=== PATIENT | female | born 1995 | race Caucasian/White ===

== ENCOUNTER 2017-06-18 22:43 | Emergency (ER) | payer MEDICAID ==
[~2017-06-18] VITALS: Ht 160 cm; Wt 46.3 kg
[2017-06-18 23:19] VITALS: BP 127/85
[2017-06-19] MEDS ORDERED: IBUPROFEN 400 MG TABLET ONE (00:12)
--- NOTE | 2017-06-19 00:17 | NUR ---
Patient discharged to home in stable condition. Written and verbal after care instructions along with RX given. Patient verbalizes understanding of instruction. VSS upon discharge.
[2017-06-19] MEDS ORDERED: IBUPROFEN 400 MG TABLET PO ONE (00:30)
== END 2017-06-19 00:26 | disposition home or self-care (01) ==
LOC: ER 22:43
DX: H66.91 Otitis media, unspecified, right ear (principal); J04.0 Acute laryngitis; H72.91 Unspecified perforation of tympanic membrane, right ear; J06.9 Acute upper respiratory infection, unspecified
CPT/HCPCS: A4606; Z7610

== ENCOUNTER 2018-10-17 19:58 | Emergency (ER) | payer MEDICAID ==
[~2018-10-17] VITALS: Ht 160 cm; Wt 51.3 kg
[2018-10-17 20:06] VITALS: BP 126/70
--- NOTE | 2018-10-17 20:14 | NUR ---
BIBSELF C/O MULTIPLE INSECT BITES BILATERAL UPPER EXTERMITIES , + SWELLING AND TENDERNESS AND REDNESS. NKA. USED [employer] W/ NO HELP.
[2018-10-17] MEDS ORDERED: diphenhydrAMINE HCL 25 MG CAPSULE PO ONE (20:30)
[2018-10-17] MEDS ORDERED: FAMOTIDINE (20 MG) 20 MG TABLET PO ONE (20:30)
[2018-10-17] MEDS ORDERED: predniSONE 10 MG TABLET PO ONE (20:30)
[2018-10-17] MEDS ORDERED: diphenhydrAMINE HCL 25 MG CAPSULE ONE (20:34)
[2018-10-17] MEDS ORDERED: predniSONE 20 MG TABLET ONE (20:35)
[2018-10-17] MEDS ORDERED: FAMOTIDINE (20 MG) 20 MG TABLET ONE (20:35)
--- NOTE | 2018-10-17 20:52 | NUR ---
Patient discharged to home in stable condition. Rx and Written and verbal after care instructions given. Patient verbalizes understanding of instruction.
== END 2018-10-17 20:54 | disposition home or self-care (01) ==
LOC: ER 20:04
DX: S40.862A Insect bite (nonvenomous) of left upper arm, initial encounter (principal); S40.861A Insect bite (nonvenomous) of right upper arm, initial encounter; L08.9 Local infection of the skin and subcutaneous tissue, unspecified; W57.XXXA Bitten or stung by nonvenomous insect and other nonvenomous arthropods, initial encounter; Y93.89 Activity, other specified; Y92.89 Other specified places as the place of occurrence of the external cause; Y99.8 Other external cause status
CPT/HCPCS: 99284; J7512; Q0163

== ENCOUNTER 2020-09-15 01:40 | Emergency (ER) | payer OTHER ==
[~2020-09-15] VITALS: Ht 160 cm; Wt 51.7 kg
[2020-09-15 01:44] VITALS: BP 136/86
[2020-09-15] MEDS ORDERED: METH4TAB3 PO (01:56)
[2020-09-15] MEDS ORDERED: HYDR28.32 TP (01:56)
[2020-09-15] MEDS ORDERED: DEXAMETHASONE SOD PHOSPHATE 10 MG/ML VIAL IM ONE (02:00)
[2020-09-15] MEDS ORDERED: DIPHENHYDRAMINE HCL 12.5 MG/5 ML UDC PO ONE (02:00)
[2020-09-15] MEDS ORDERED: diphenhydrAMINE HCL 25 MG CAPSULE ONE (02:06)
[2020-09-15] MEDS ORDERED: DEXAMETHASONE SOD PHOSPHATE 10 MG/ML VIAL ONE (02:06)
== END 2020-09-15 02:40 | disposition home or self-care (01) ==
LOC: ER 01:40
DX: R21 Rash and other nonspecific skin eruption (principal); Z79.899 Other long term (current) drug therapy
CPT/HCPCS: 96372; 99283; J1100; Q0163

== ENCOUNTER 2022-06-23 19:01 | Emergency (ER) | payer OTHER ==
[~2022-06-23] VITALS: Ht 160 cm; Wt 49.9 kg
[~2022-06-23 19:01] MED LIST: HYDR28.32 TP; METH4TAB3 PO
[2022-06-23 21:22] VITALS: BP 129/84
--- NOTE | 2022-06-23 21:44 | NUR ---
Patient discharged to home in stable condition. Written and verbal after care instructions given. Patient verbalizes understanding of instruction. Pt ambulatory with a steady gait
== END 2022-06-23 21:45 | disposition home or self-care (01) ==
LOC: ER 19:07
DX: H92.01 Otalgia, right ear (principal); Z79.899 Other long term (current) drug therapy